=== PATIENT | female | born 1995 | race Caucasian/White ===

== ENCOUNTER 2017-01-05 15:42 | Emergency (ER) | payer BC ==
[~2017-01-05] VITALS: Ht 165.1 cm; Wt 101.9 kg
[~2017-01-05 15:42] MED LIST: ADVIL,NUPRIN,M200 MG PO; AZITHROMYCIN250 MG PO; BEYAZ 28 TABLE1 EACH PO; KEFLEX500 MG PO; MOTRIN400 MG PO; MOTRIN600 MG PO; PAIN & FEVER325 MG PO; PROZAC10 MG PO; RANITIDINE HCL150 MG PO; ZITHROMAX Z-PA250 MG PO; ZOFRAN4 MG PO
[2017-01-05] MEDS ORDERED: ZESTRIL2.5 MG PO (15:56)
[2017-01-05] MEDS ORDERED: BEYAZ 28 TABLE1 EACH PO (15:56)
[2017-01-05 16:01] LABS: HEMATOCRIT 37.5 % (36.0-46.0); MCH 26.5 PG (29.0-34.0); MCHC 32.5 G/DL (30.0-36.0); MCV 81.3 FL (83-99); MEAN PLAT.VOLUME 9.1 uM^3 (9.5-12.4); PLATELET COUNT 407 K/uL (156-360); RBC DIS.WIDTH-CV 14.3 % (11.8-14.6); RBC DIS.WIDTH-SD 41.8 % (39-53); RED BLOOD COUNT 4.61 M/uL (3.80-5.20); WHITE BLOOD COUNT 9.2 K/uL (4.1-10.2)
[2017-01-05 16:11] LABS: CHLORIDE 102 mEq/L (99-109); SODIUM 138 mEq/L (136-147)
[2017-01-05 16:12] LABS: ADD MIUA? YES; BILIRUBIN NEGATIVE; BLOOD MODERATE; COLOR YELLOW ((YELLOW)); GLUCOSE (STRIP) NEGATIVE; KETONES 20; LEUKOCYTES TRACE; NITRITE NEGATIVE; PROTEIN (STRIP) 100; SPECIFIC GRAVITY 1.012 (1.000-1.030); UROBILINOGEN 0.2 MG/DL (0.2-1.0)
[2017-01-05 16:14] LABS: GLUCOSE 84 mg/dL (70-99)
[2017-01-05 16:15] LABS: ANION GAP 12 MEQ/L (2-14)
[2017-01-05 16:16] LABS: TOTAL BILIRUBIN 0.2 mg/dL (0.0-1.0)
[2017-01-05 16:17] LABS: ALKALINE PHOSPHATASE 69 IU/L (3-129); GFR ESTIMATE (CALCULATED) > 59 mL/min/
[2017-01-05 16:18] LABS: UREA NITROGEN (BUN) 6 mg/dL (9-23)
[2017-01-05 16:26] LABS: QUANTITATIVE HCG < 4.0 MIU/ML
[2017-01-05 16:37] LABS: BACTERIA NONE SEEN /HPF; EPITHELIAL CELLS 1+ /HPF; HYALINE CASTS 0-5 /LPF; MUCUS TRACE /LPF; RED BLOOD CELLS 0-5 /HPF (0-5); UCUL ADDED? NO; WHITE BLOOD CELLS 0-5 /HPF (0-5)
[2017-01-05 16:41] LABS: LIPASE 34 U/L (1.0-51.0)
[2017-01-05] MEDS ORDERED: MACROBID100 MG PO (18:58)
[2017-01-05] MEDS ORDERED: PYRIDIUM200 MG PO (18:59)
[2017-01-05] MEDS ORDERED: ZOFRAN ODT4 MG PO (18:59)
[2017-01-05 19:32] VITALS: BP 147/91
== END 2017-01-05 19:33 | disposition home or self-care (01) ==
LOC: EME 15:42
DX: R10.9 Unspecified abdominal pain (principal)
CPT/HCPCS: 74177; 80053; 81003; 83690; 84702; 85027; 87086; 99281; 99285; J2270; J2405; J7030

== ENCOUNTER 2017-07-20 16:08 | Emergency (ER) | payer BC ==
[~2017-07-20] VITALS: Ht 162.6 cm; Wt 107.4 kg
[~2017-07-20 16:08] MED LIST changes: +MACROBID100 MG PO; +PYRIDIUM200 MG PO; +ZESTRIL2.5 MG PO; +ZOFRAN ODT4 MG PO
[2017-07-20] MEDS ORDERED: PERCOCET 5/31 TABLET PO (18:21)
[2017-07-20 18:40] VITALS: BP 146/75
== END 2017-07-20 18:43 | disposition home or self-care (01) ==
LOC: RME 16:08 → EME 16:08 → RME 18:43
DX: S93.402A Sprain of unspecified ligament of left ankle, initial encounter (principal); S83.92XA Sprain of unspecified site of left knee, initial encounter; X50.0XXA Overexertion from strenuous movement or load, initial encounter; Y93.89 Activity, other specified; Z91.040 Latex allergy status; Z88.0 Allergy status to penicillin
CPT/HCPCS: 93926; 99281; 99284

== ENCOUNTER 2017-11-10 14:31 | Observation (INO) | payer BC ==
[~2017-11-10] VITALS: Ht 165.1 cm; Wt 112.0 kg
[~2017-11-10 14:31] MED LIST changes: +PERCOCET 5/31 TABLET PO
[2017-11-10 15:10] LABS: HEMATOCRIT 37.4 % (36.0-46.0); HEMOGLOBIN 12.2 G/DL (11.9-15.5); MCH 26.7 PG (29.0-34.0); MCHC 32.6 G/DL (30.0-36.0); MCV 81.8 FL (83-99); PLATELET COUNT 379 K/uL (156-360); RBC DIS.WIDTH-CV 14.4 % (11.8-14.6); RBC DIS.WIDTH-SD 42.4 % (39-53); RED BLOOD COUNT 4.57 M/uL (3.80-5.20)
[2017-11-10 15:19] LABS: CHLORIDE 106 mEq/L (99-109); POTASSIUM 4.2 mEq/L (3.7-5.4); SODIUM 139 mEq/L (136-147)
[2017-11-10 15:20] LABS: GLUCOSE 102 mg/dL (70-99)
[2017-11-10 15:24] LABS: CREATININE 0.7 mg/dL (0.6-1.3); GFR ESTIMATE (CALCULATED) > 59 mL/min/
[2017-11-10 15:25] LABS: UREA NITROGEN (BUN) 9 mg/dL (9-23)
[2017-11-10 15:30] LABS: TROP-I INTERPRETATION NEGATIVE; TROPONIN-I < 0.01 ng/mL (0.0-0.30)
[2017-11-10 15:32] LABS: QUANTITATIVE HCG < 4.0 MIU/ML
[2017-11-10 17:56] LABS: ERTH.SED.RATE 62 MM/HR (0-20)
[2017-11-10 18:19] LABS: D-DIMER ELISA < 150.00 ng/mLDDU (<230)
[2017-11-10] MEDS ORDERED: TAB-A-VITE1 EACH PO (20:20)
[2017-11-10 21:35] LABS: ALBUMIN 3.4 g/dL (3.2-4.8)
[2017-11-10 21:38] LABS: PTT 27.3 SEC (25-37); TOTAL PROTEIN 6.8 g/dL (6.4-8.3)
[2017-11-10 21:40] LABS: TOTAL BILIRUBIN 0.1 mg/dL (0.0-1.0)
[2017-11-10 21:41] LABS: ALKALINE PHOSPHATASE 73 IU/L (3-129)
[2017-11-10 21:43] LABS: AST (GOT) 13 IU/L (2-34); DIRECT BILIRUBIN 0.1 mg/dL (0.0-0.3)
[2017-11-10 21:44] LABS: ALT (GPT) 17 IU/L (3-49); CREATINE KINASE 51 IU/L (1-294); LIPASE 28 U/L (1.0-51.0)
[2017-11-10 22:51] LABS: TROP-I INTERPRETATION NEGATIVE; TROPONIN-I < 0.01 ng/mL (0.0-0.30)
[2017-11-10 23:55] VITALS: BP 123/60
[2017-11-11 04:27] LABS: HEMATOCRIT 35.3 % (36.0-46.0); HEMOGLOBIN 11.6 G/DL (11.9-15.5); MCH 26.9 PG (29.0-34.0); MCHC 32.9 G/DL (30.0-36.0); MCV 81.9 FL (83-99); PLATELET COUNT 340 K/uL (156-360); RBC DIS.WIDTH-CV 14.6 % (11.8-14.6); RBC DIS.WIDTH-SD 42.9 % (39-53); RED BLOOD COUNT 4.31 M/uL (3.80-5.20); WHITE BLOOD COUNT 8.1 K/uL (4.1-10.2)
[2017-11-11 04:38] LABS: CHLORIDE 110 mEq/L (99-109); POTASSIUM 4.6 mEq/L (3.7-5.4); SODIUM 138 mEq/L (136-147)
[2017-11-11 04:43] LABS: CREATININE 0.6 mg/dL (0.6-1.3); GFR ESTIMATE (CALCULATED) > 59 mL/min/
[2017-11-11 04:44] LABS: GLUCOSE 201 mg/dL (70-99); UREA NITROGEN (BUN) 9 mg/dL (9-23)
[2017-11-11 04:48] LABS: TROP-I INTERPRETATION NEGATIVE; TROPONIN-I < 0.01 ng/mL (0.0-0.30)
[2017-11-11 10:34] VITALS: BP 141/60
[2017-11-11 13:59] LABS: APPEARANCE CLEAR ((CLEAR)); BILIRUBIN NEGATIVE; BLOOD MODERATE; COLOR YELLOW ((YELLOW)); GLUCOSE (STRIP) 150; KETONES NEGATIVE; LEUKOCYTES TRACE; NITRITE NEGATIVE; PROTEIN (STRIP) 30; SPECIFIC GRAVITY 1.012 (1.000-1.030); UROBILINOGEN 0.2 MG/DL (0.2-1.0)
[2017-11-11 14:00] LABS: APPEARANCE CLEAR ((CLEAR)); BILIRUBIN NEGATIVE; BLOOD MODERATE; COLOR YELLOW ((YELLOW)); GLUCOSE (STRIP) 150; KETONES NEGATIVE; LEUKOCYTES TRACE; NITRITE NEGATIVE; PROTEIN (STRIP) 30; SPECIFIC GRAVITY 1.012 (1.000-1.030); UROBILINOGEN 0.2 MG/DL (0.2-1.0)
[2017-11-11 14:10] LABS: BACTERIA RARE /HPF; EPITHELIAL CELLS 1+ /HPF; MUCUS TRACE /LPF; RED BLOOD CELLS 15-20 /HPF (0-5); UCUL ADDED? NO; WHITE BLOOD CELLS 0-5 /HPF (0-5)
[2017-11-11 14:30] LABS: BENZODIAZEPINES, URINE SCREEN Negative (200 ng/mL)
== END 2017-11-11 18:47 | disposition home or self-care (01) ==
LOC: EME 14:31 → EDOF 21:16 → ENRESERV 21:18 → 5WEST 23:07
PROVIDERS: Hospitalist; Physician Assistant Medical
DX: R07.89 Other chest pain (principal); N02.8 Recurrent and persistent hematuria with other morphologic changes; E87.2 Acidosis; R21 Rash and other nonspecific skin eruption; R00.0 Tachycardia, unspecified; E87.8 Other disorders of electrolyte and fluid balance, not elsewhere classified; Z86.19 Personal history of other infectious and parasitic diseases; J45.998 Other asthma; F12.90 Cannabis use, unspecified, uncomplicated; Z88.6 Allergy status to analgesic agent; Z91.040 Latex allergy status; Z91.018 Allergy to other foods
CPT/HCPCS: 71046; 71250; 80048; 80076; 80306 90; 81003; 82550 91; 83690; 84484; 84702; 85027; 85379; 85610; 85651; 85730; 86038; 86140; 86430; 93005; 93306; G0378; J1200; J2405; J2930; J3010; J7030; S0028